=== PATIENT | male | born 1985 | race African-American/Black ===

== ENCOUNTER 2024-06-29 12:52 | Inpatient (IN) | payer OTHER ==
[2024-06-29 13:10] VITALS: BMI 22.9
[2024-06-29] MEDS ORDERED: ONDANSETRON *ODT* 4 MG TABLET SL PRN (14:21)
[2024-06-29] MEDS ORDERED: BENZOCAINE/MENTHOL (CHLORASEPTIC ) LOZENGE MM PRN (14:21)
[2024-06-29] MEDS ORDERED: IBUPROFEN 400 MG TABLET (FP) PO PRN (14:21)
[2024-06-29] MEDS ORDERED: METHOCARBAMOL 500 MG TABLET PO PRN (14:21)
[2024-06-29] MEDS ORDERED: POLYETHYLENE GLYCOL (HEALTHYLAX) 3350 17 GM PACKET PO PRN (14:21)
[2024-06-29] MEDS ORDERED: NALOXONE (NARCAN) HCL 4 MG/0.1 ML SPRAY NS PRN (14:21)
[2024-06-29] MEDS ORDERED: DICYCLOMINE HCL 10 MG CAPSULE PO PRN (14:21)
[2024-06-29] MEDS ORDERED: BISMUTH SUBSALICYLATE 524 MG/30 ML PO PRN (14:21)
[2024-06-29] MEDS ORDERED: MAGNESIUM HYDROX 2400MG/30ML ORAL SUSPENSION 30 ML CUP PO PRN (14:21)
[2024-06-29] MEDS ORDERED: LOPERAMIDE HCL 2 MG CAPSULE PO PRN (14:21)
[2024-06-29] MEDS ORDERED: IBUPROFEN 600 MG TABLET (FP) PO PRN (14:21)
[2024-06-29] MEDS ORDERED: ACETAMINOPHEN 325 MG TABLET (FP) PO PRN (14:21)
[2024-06-29] MEDS ORDERED: hydrOXYzine PAMOATE 25 MG CAPSULE (FP) PO PRN (14:21)
[2024-06-29] MEDS ORDERED: MAG HYDROX/AL HYDROX/SIMETH 30 ML UNIT-DOSE CUP PO PRN (14:21)
[2024-06-29] MEDS ORDERED: BENZONATATE 200 MG CAPSULE PO PRN (14:21)
[2024-06-29] MEDS ORDERED: guaiFENesin 600 MG TABLET.ER (FP) PO PRN (14:21)
[2024-06-29] MEDS: chlordiazePOXIDE HCL 25 MG CAPSULE PO PRN (17:30)
[2024-06-29] MEDS: NALTREXONE HCL 50 MG TABLET PO ONE (17:31)
[2024-06-29] MEDS: MIRTAZAPINE 15 MG TABLET (FP) PO SCH (22:35)
[2024-06-29] MEDS: THIAMINE 100 MG TABLET PO SCH (22:35)
[2024-06-29] MEDS: chlordiazePOXIDE HCL 25 MG CAPSULE PO SCH (22:35)
[2024-06-29] MEDS: MELATONIN 5 MG TABLETS PO SCH (22:35)
[2024-06-30] MEDS: NALTREXONE HCL 50 MG TABLET PO SCH (10:50)
[2024-06-30] MEDS: PRENATAL VITAMINS W/ FOLIC ACID TABLET (FP) PO SCH (10:51)
[2024-06-30] MEDS: FLU VACCINE (FLULAVAL) PF 45 MCG/0.5 ML SYRINGE 2024-2025 IM ONE (11:31)
[2024-06-30 16:49] VITALS: RESP 16
[2024-06-30] MEDS: chlordiazePOXIDE HCL 25 MG CAPSULE PO SCH (17:07)
[2024-07-01] MEDS: chlordiazePOXIDE HCL 25 MG CAPSULE PO SCH (05:23)
[2024-07-01 06:33] VITALS: PULSE 60
[2024-07-01 09:24] VITALS: BP 131/77; TEMP 98
[2024-07-01] MEDS: NALOXONE (NYS OPIOID OVERDOSE PROGRAM) 4 MG/0.1 ML SPRAY NS SCH (12:01)
[2024-07-01] MEDS ORDERED: chlordiazePOXIDE HCL 10 MG CAPSULE PO SCH (17:00)
[2024-07-02] MEDS ORDERED: chlordiazePOXIDE HCL 10 MG CAPSULE PO PRN
[2024-07-02] MEDS ORDERED: chlordiazePOXIDE HCL 10 MG CAPSULE PO SCH (05:00)
[2024-07-03] MEDS ORDERED: chlordiazePOXIDE HCL 10 MG CAPSULE PO SCH (05:00)
[2024-07-04] MEDS ORDERED: chlordiazePOXIDE HCL 10 MG CAPSULE PO ONE (05:00)
== END 2024-07-01 12:02 | disposition left against medical advice (07) | DRG 770 ==
LOC: YASAS 12:52 → Y6N 14:38
PROVIDERS: ADMIT Allergy & Immunology; ATTEND Surgery
PROC: HZ2ZZZZ Detoxification Services for Substance Abuse Treatment (ICD-10-PCS; principal; 2024-06-29)
DX: F10.230 Alcohol dependence with withdrawal, uncomplicated (principal); F14.10 Cocaine abuse, uncomplicated; F12.20 Cannabis dependence, uncomplicated; F17.210 Nicotine dependence, cigarettes, uncomplicated; F41.8 Other specified anxiety disorders; F32.A Depression, unspecified; Z59.00 Homelessness unspecified
CPT/HCPCS: 36415; 80305; 80307; 93005; 93010